=== PATIENT | male | born 1965 | race Two or more races ===

== ENCOUNTER 2019-12-09 09:32 | Outpatient (CLI) | payer OTHER ==
[2019-12-15] MEDS ORDERED: ASPI-992 PO (13:55)
== END 2019-12-09 23:59 | disposition home or self-care (01) ==
LOC: LAB 09:32
PROVIDERS: ATTEND Specialist
DX: Z01.812 Encounter for preprocedural laboratory examination (principal); Z20.828 Contact with and (suspected) exposure to other viral communicable diseases
CPT/HCPCS: 87426; C9803; U0003

== ENCOUNTER 2019-12-09 14:47 | Outpatient (CLI) | payer OTHER ==
[2019-12-15] MEDS ORDERED: ASPI-992 PO (13:55)
== END 2019-12-09 23:59 | disposition home or self-care (01) ==
LOC: CL 14:47
PROVIDERS: ATTEND Specialist
DX: Z75.3 Unavailability and inaccessibility of health-care facilities (principal)

== ENCOUNTER 2019-12-14 04:35 | Inpatient (IN) | payer OTHER ==
[~2019-12-14] VITALS: Ht 170.2 cm; Wt 82.6 kg
[2019-12-14 05:16] VITALS: BP 146/82
[2019-12-14] MEDS ORDERED: ANESTHESIA TRAY IN PYXIS 1 EA TRAY MC ONE (05:57)
[2019-12-14] MEDS ORDERED: BACITRACIN 50000 UNITS/VIAL ONE (05:57)
[2019-12-14] MEDS ORDERED: BUPIVACAINE 0.5 % PF 150 MG/30 ML VIAL ONE (05:57)
[2019-12-14] MEDS ORDERED: MIDAZOLAM HCL 2 MG/2ML VIAL ONE (06:19)
[2019-12-14] MEDS ORDERED: FENTANYL PF 250MCG/5ML AMPUL ONE (06:19)
[2019-12-14] MEDS ORDERED: BUPIVACAINE 0.25% 75 MG/30 ML VIAL ONE (06:20)
[2019-12-14] MEDS ORDERED: ROCURONIUM BROMIDE 50 MG/5 ML ONE (06:20)
[2019-12-14] MEDS ORDERED: FAMOTIDINE/PF INJ 20 MG/2 ML VIAL IV ONE (06:20)
--- NOTE | 2019-12-14 06:25 | NUR ---
RN NOTES 1724 - Pt admitted to 315-2 for day surgery under the service of Dr. Umana. Admission routine done. Pre-op routine done. Pt witnessed for consents. Kept on bed clean, dry and comfortable. Awaiting for [employer] for OR. 0625 - Picked up for OR procedure, via bed, accompanied by 2 OR staff.
[2019-12-14] MEDS ORDERED: TRANEXAMIC ACID 3,000 MG in SODIUM CHLORIDE IRRIG SOLUTION 70 ML IR ONE (07:00)
[2019-12-14] MEDS ORDERED: DULCOLAX 10 MG/SUPP.RECT RC PRN (10:00)
[2019-12-14] MEDS ORDERED: TYLENOL 650 MG TABLET PO PRN (10:00)
[2019-12-14] MEDS ORDERED: ZOFRAN 4mg/2ML IV PRN (10:00)
[2019-12-14] MEDS ORDERED: SENOKOT 8.6 MG TABLET PO PRN (10:00)
[2019-12-14] MEDS ORDERED: COLACE 250 MG CAPSULE PO PRN (10:00)
[2019-12-14] MEDS ORDERED: HYDROCODONE/APAP 5/325MG TABLET PO PRN (10:00)
--- NOTE | 2019-12-14 10:30 | NUR ---
RN MS NOTES RECEIVED PT FROM DAY SURGERY. S/P L TOTAL KNEE ARTHROPLASTY. VS STABLE. IV SITE AT L AC #20 INTACT, PATENT AND FLUSHED. WITH LEFT KNEE DRESSING DRY AND INTACT. WILL CONTINUE TO MONITOR
[2019-12-14] MEDS ORDERED: HYDROCODONE/APAP 10/325MG TABLET PO PRN (11:30)
[2019-12-14] MEDS ORDERED: MENTHOL/CETYLPYRD (CEPACOL) 1 LOZ LOZENGE MM PRN (11:30)
[2019-12-14] MEDS ORDERED: MAG HYDROX/AL HYDROX/SIMETH 30 ML UDC PO PRN (11:30)
[2019-12-14] MEDS ORDERED: NALOXONE HCL 0.4 MG/ML AMPUL IV PRN (11:30)
[2019-12-14] MEDS ORDERED: CLONIDINE HCL 0.1 MG TABLET PO PRN (11:30)
[2019-12-14] MEDS ORDERED: diphenhydrAMINE HCL 25 MG CAPSULE PO PRN (11:30)
[2019-12-14] MEDS ORDERED: MAGNESIUM HYDROXIDE 30 ML UDC PO PRN (11:30)
[2019-12-14] MEDS ORDERED: HYDROMORPHONE 1 MG/1 ML DISP.SYRIN IV PRN (11:30)
[2019-12-14] MEDS: TAMSULOSIN 0.4 MG CAP.SR.24H PO SCH (12:58)
[2019-12-14] MEDS ORDERED: HYDROMORPHONE 1 MG/1 ML DISP.SYRIN IV ONE (13:33)
[2019-12-14] MEDS: ANCEF 1 GM/50 ML D5W IV SCH ×4 (15:38→22:58)
[2019-12-14] MEDS: IV D5/0.45 NACL 1,000 ML IV PRN (15:39)
[2019-12-14 16:26] VITALS: BP 95/58
[2019-12-14] MEDS: DOCUSATE SODIUM 100 MG CAPSULE PO SCH (16:31)
--- NOTE | 2019-12-14 19:10 | NUR ---
RN MS CLOSING NOTES S/P L TOTAL KNEE ARTHROPLASTY. PT RESTING IN BED. A/O X4. ON RA SATURATING @100%. NO SOB OR ANY RESPIRATORY DISTRESS NOTED. L AC #20 INTACT, PATENT AND FLUSHED. D5 1/2 NS RUNNING AT 125MLS/HR, INFUSING WELL. WITH LEFT KNEE DRESSING DRY AND INTACT. PAIN MANAGED. WILL CONTINUE ENDORSE TO NIGHT NURSE FOR CARLOS
--- NOTE | 2019-12-14 19:53 | NUR ---
RN OPENING NOTES PATIENT RECEIVED RESTING IN BED A/O X 4. STABLE ON RA WITH BREATHING EVEN AND UNLABORED, NO SOB NOTED. NO SIGNS OF ACUTE DISTRESS. NO COMPLAINTS OF PAIN OR DISCOMFORT AT THE MOMENT. IV LOCATED ON L AC #20 RUNNING D5 1/2 NS @ 125 ML/HR. L KNEE DRESSING DRY AND INTACT. SAFETY PRECAUTIONS IN PLACE WITH BED IN LOWEST POSITION, CALL LIGHT WITHIN REACH, BREAKS ON, SIDE RAILS UP. WILL CONTINUE TO MONITOR THROUGHOUT THE NIGHT.
[2019-12-14 20:38] VITALS: BP 94/60
[2019-12-14] MEDS: FAMOTIDINE (20 MG) 20 MG TABLET PO SCH (21:05)
[2019-12-14] MEDS ORDERED: AMBIEN 5 MG TABLET PO PRN (22:00)
[2019-12-15] MEDS: IV D5/0.45 NACL 1,000 ML IV PRN (00:37)
[2019-12-15] MEDS: HYDROMORPHONE 1 MG/1 ML DISP.SYRIN SQ PRN ×2 (05:55→12:57)
[2019-12-15 06:33] LABS: BASOPHILS % (AUTO) 0.3 % (0.0-2.0); EOSINOPHILS % (AUTO) 0.3 % (0.0-6.0); HEMATOCRIT 39 % (39-51); HEMOGLOBIN 13.2 g/dL (13.5-17.5); LYMPHOCYTES # (AUTO) 0.8 /CMM (0.8-4.8); LYMPHOCYTES % (AUTO) 7.4 % (20.0-44.0); MEAN CORPUSCULAR HGB CONC 34 g/dl (31.0-36.0); MEAN CORPUSCULAR VOLUME 88 fL (80-96); MONOCYTES # (AUTO) 0.9 /CMM (0.1-1.30); MONOCYTES % (AUTO) 8.6 % (2.0-12.0); NEUTROPHILS # (AUTO) 8.5 /CMM (1.8-8.9); NEUTROPHILS % (AUTO) 83.4 % (43.0-81.0); PLATELET COUNT (AUTO) 193 /CMM (150-450); RED BLOOD CELL COUNT(AUTO) 4.43 MIL/uL (4.5-6.0); WHITE BLOOD COUNT (AUTO) 10.2 K/uL (4.3-11.0)
[2019-12-15 06:59] LABS: CALCIUM, SERUM 9.5 mg/dL (8.5-10.1); CREATININE 1.1 mg/dL (0.6-1.3); POTASSIUM 3.9 mmol/L (3.5-5.1)
--- NOTE | 2019-12-15 07:03 | NUR ---
RN CLOSING NOTES PATIENT RESTING IN BED A/O X 4. STABLE ON RA WITH BREATHING EVEN AND UNLABORED, NO SOB NOTED. NO SIGNS OF ACUTE DISTRESS. NO COMPLAINTS OF PAIN OR DISCOMFORT AT THE MOMENT. IV LOCATED ON L AC #20 RUNNING D5 1/2 NS @ 125 ML/HR. L KNEE DRESSING DRY AND INTACT. SAFETY PRECAUTIONS IN PLACE WITH BED IN LOWEST POSITION, CALL LIGHT WITHIN REACH, BREAKS ON, SIDE RAILS UP. ALL NEEDS ATTENDED TO. PATIENT KEPT CLEAN AND DRY THROUGHOUT THE NIGHT. WILL ENDORSE TO ONCOMING SHIFT ABOUT CARLOS.
[2019-12-15 08:25] VITALS: BP 121/76
[2019-12-15] MEDS ORDERED: PSYLLIUM SEED 1 PKT PACKET PO SCH (09:00)
[2019-12-15] MEDS ORDERED: ASPIRIN 325 MG TABLET PO SCH (09:00)
[2019-12-15] MEDS: TAMSULOSIN 0.4 MG CAP.SR.24H PO SCH (09:00)
[2019-12-15] MEDS: FAMOTIDINE (20 MG) 20 MG TABLET PO SCH (09:00)
[2019-12-15] MEDS: DOCUSATE SODIUM 100 MG CAPSULE PO SCH (09:00)
--- NOTE | 2019-12-15 10:43 | NUR ---
PATIENT IS IN BED RESTING. PATIENT IS ALERT AND ORIENTED X4. PATIENT DENIES PAIN, DISTRESS, OR SHORTNESS OF BREATH. LEFT LEG ELEVATED ON TWO PILLOWS. AM CARE NEEDS MET. PATIENT TOLERATED PHYSICAL THERAPY WELL. BED IN LOW POSITION. CALL LIGHT IN REACH. WILL CONTINUE TO MONITOR PATIENT THROUGHOUT SHIFT.
--- NOTE | 2019-12-15 11:40 | NUR ---
PATIENT REFUSED FLU SHOT
[2019-12-15] MEDS ORDERED: HYDROCODONE/APAP 10/325MG TABLET PO ONE (13:20)
[2019-12-15] MEDS ORDERED: ASPI-992 PO (13:55)
--- NOTE | 2019-12-15 16:28 | NUR ---
PATIENT DISCHARGED HOME VIA PRIVATE AUTO. PATIENT ALERT AND ORIENTED X4 IN STABLE CONDITION. IV REMOVED. DISCHARGE TEACHING PROVIDED. DISCHARGE PAPERWORK AND BELONGINGS SENT HOME WITH PATIENT. ALL CARE NEEDS MET. IV AND WRIST BAND REMOVED.
== END 2019-12-15 16:30 | disposition home health service (06) | DRG 470 ==
LOC: DS 04:35 → MED 04:36 → DS 18:16 → MED 18:17
PROVIDERS: ADMIT Nurse Practitioner Acute Care; ATTEND Student in an Organized Health Care Education/Training Program
PROC: 0SRD0J9 Replacement of Left Knee Joint with Synthetic Substitute, Cemented, Open Approach (ICD-10-PCS; principal; 2019-12-14)
DX: M17.12 Unilateral primary osteoarthritis, left knee (principal); E66.9 Obesity, unspecified; Z68.28 Body mass index [BMI] 28.0-28.9, adult; Z96.612 Presence of left artificial shoulder joint; Z96.611 Presence of right artificial shoulder joint; N40.0 Benign prostatic hyperplasia without lower urinary tract symptoms; G89.29 Other chronic pain
CPT/HCPCS: 36415; 71045-TC; 80048-TC; 80061-TC; 82962-TC; 85025-TC; 86850-TC; 87081-TC; 97116-TC; 97530-TC; 97760-TC; A4217; C1713; C1776; G0378; J0690; J1170; J2250; J2405; J2704; J2765; J3010; J3490; J7030; J7060; L1830